=== PATIENT | male | born 1990 | race Caucasian/White ===

== ENCOUNTER 2025-06-10 16:31 | Emergency (ER) | payer BC, OTHER ==
[2025-06-10 17:30] LABS: APPEARANCE,URINE CLEAR (Clear); GLUCOSE,URINE 1+ (Negative); OCCULT BLOOD,URINE NEGATIVE (Negative)
[2025-06-10 18:22] LABS: EPITHELIAL CELLS,URINE 0-5 /hpf (0-5)
[2025-06-10 18:24] LABS: MEAN PLATELET VOLUME 9.7 fl (9.4-12.4); NRBC ABSOLUTE 0.00 (0.00-0.02); NRBC PERCENT 0.0 % (0.0-0.2); PLATELET COUNT,PLT 175 K/mm3 (150-400); RED BLOOD CELL COUNT 5.11 M/mm3 (4.52-5.90); WHITE BLOOD CELL COUNT,WBC 6.92 K/mm3 (3.9-11.3)
[2025-06-10 18:51] LABS: A/G RATIO 1.0 (1-2); ALANINE AMINOTRANSFERASE,ALT 153.0 U/L (16-63); ASPARTATE AMNIOTRANSFERASE,AST 70.0 U/L (15-37); BILIRUBIN TOTAL 0.6 mg/dL (0.2-1.0); BLOOD UREA NITROGEN,BUN 8.0 mg/dL (7-18); CARBON DIOXIDE,CO2 30.0 mEq/L (21-32); CHLORIDE,CL 103.0 mEq/L (98-107); CREATININE 1.0 mg/dL (0.7-1.3); EST CRCL DRUG DOSING (CG) 115.41 mL/min; ESTIMATED GFR 100.0 mL/min (>60); GLUCOSE RANDOM 127.0 mg/dL (70-99); POTASSIUM,K 3.4 mEq/L (3.5-5.1); PROTEIN TOTAL,TP 6.6 g/dl (6.4-8.2); SODIUM,NA 140.0 mEq/L (136-145)
[2025-06-10 18:52] LABS: LACTIC ACID 1.6 mmol/L (0.4-2.0)
[2025-06-10] MEDS: Ketorolac 30 MG/ML SDV IVPUSH ONE (19:18)
[2025-06-10 19:33] LABS: HEPATITIS C AB NON-REACTIVE (Non-React)
[2025-06-10 19:46] LABS: BAND PERCENT MAN 0 % (0-10); BASOPHILS PERCENT MAN 0 (0.2-1.2); EOSINOPHILS PERCENT MAN 0 % (0.8-7.0); LYMPHOCYTES % ATYPICAL MANUAL 21 %; LYMPHOCYTES PERCENT MAN 26 % (20-40); MONOCYTES PERCENT MAN 1 % (2-10)
[2025-06-10 19:50] LABS: PLATELET COUNT ESTIMATE ADEQUATE
[2025-06-10] MEDS ORDERED: Sodium Chloride 0.9% 10 ML Syringe FLUSH PRN (19:53)
[2025-06-10] MEDS: Iopamidol 612 MG/ML 100 ML Bottle IVPUSH ONE (20:08)
[2025-06-10] MEDS: Sodium Chloride 0.9% 10 ML Syringe FLUSH PRN (20:08)
[2025-06-10] MEDS: Iopamidol 612 MG/ML 30 ML SDV IV ONE (20:08)
[2025-06-12 19:09] LABS: RAPID PLASMA REAGIN,RPR NON-REACTIVE (NONREACTIVE)
[2025-06-13 16:46] LABS: HIV 1,2 COMBO AG/AB CIA W/RFLX Negative (Negative)
[2025-06-14 11:47] LABS: QNTIFERON MITOGEN MIN NIL 9.10 IU/mL; QNTIFERON NIL 0.90 IU/mL; QNTIFERON PLUS TB1 MINUS NIL 0.07 IU/mL (<=0.34); QNTIFERON PLUS TB2 MINUS NIL 0.08 IU/mL (<=0.34); QNTIFERON TB GOLD PLUS Negative (Negative)
== END 2025-06-10 21:35 | disposition home or self-care (01) ==
LOC: JD.ED 16:31
DX: B34.9 Viral infection, unspecified (principal); R16.2 Hepatomegaly with splenomegaly, not elsewhere classified; R74.8 Abnormal levels of other serum enzymes
CPT/HCPCS: 36415; 71046; 71260; 74177; 76705; 80053; 81001; 82550; 83605; 83735; 85007; 85027; 86308; 86480; 86592; 86803; 87040; 87086; 87389; 96361; 96374; 96375; 99284; A9270; J0696; J1885; J7030; Q9967